=== PATIENT | female | born 1985 | race Caucasian/White ===

== ENCOUNTER 2020-11-03 10:27 | Outpatient (CLI) | payer OTHER ==
[2020-11-03 14:55] LABS: THYROID STIMULATING HORMONE < 0.08 uIU/mL (0.34-5.60)
[2020-11-03 14:57] LABS: FREE T3 6.85 pg/mL (2.5-3.9)
[2020-11-03 14:58] LABS: FREE T4 (FREE THYROXINE) 1.35 ng/dL (0.58-1.64)
== END 2020-11-03 23:59 | disposition home or self-care (01) ==
LOC: LAB.WCP 10:27
PROVIDERS: ATTEND Family Medicine
DX: E03.9 Hypothyroidism, unspecified (principal)
CPT/HCPCS: 36415; 84439; 84443; 84481

== ENCOUNTER 2021-07-05 10:26 | Outpatient (CLI) | payer OTHER ==
--- NOTE | 2021-07-05 13:59 | Ultrasound Report ---
PROCEDURE: Head or Neck Soft Tissue INDICATIONS: GOITER TECHNIQUE: Real time scanning was performed of the neck region of interest, with image documentation . COMPARISON: None. FINDINGS: Right: Thyroid lobe measures 4 x 1 x 1.1 cm, and is heterogeneous in echotexture. Left: Thyroid lobe measures 3.7 x 1 x 1.2 cm, and is heterogeneous in echotexture. Isthmus: 0.3 cm Nodule number: 1 Location: Left Size: 0.7 x 0.6 x 0.8 centimeters Composition: Solid Echogenicity: Hyperechoic Shape: Wider than tall. Margins: Smooth Echogenic foci: None. Total points: 3 ACR TI-RADS category: Mildly suspicious. Less than 1.5 cm. No follow-up at this time. Nodule number: 2 Location: Left inferior lateral Size: 0.6 x 0.4 x 0.4 centimeters Composition: Solid Echogenicity: Hyperechoic Shape: Wider than tall. Margins: Smooth Echogenic foci: None. Total points: 3 ACR TI-RADS category: Mildly suspicious. Less than 1.5 cm. No follow-up at this time. Nodule number: 3 Location: Left inferior lateral Size: 0.9 x 0.2 x 0.7 cm Composition: Solid Echogenicity: Hypoechoic Shape: Taller than wide Margins: Smooth Echogenic foci: Punctate Total points: 9 ACR TI-RADS category: Highly suspicious; follow-up is 0.5 cm or larger (every year for 5 years). IMPRESSION: 1.Highly suspicious thyroid nodule in the left inferior lateral region. ACR TI-RADS definitions and recommendations: TI-RADS 1 (benign): 0 points. FNA not needed. TI-RADS 2 (not suspicious): 2 points. FNA not needed. TI-RADS 3 (mildly suspicious): 3 points. --FNA if 2.5 cm or larger, follow-up if 1.5 cm or larger (at 1, 3, and 5 years). TI-RADS 4 (moderately suspicious): 4-6 points. --FNA if 1.5 cm or larger, follow up if 1 cm or larger (at 1, 2, 3, and 5 years). TI-RADS 5 (highly suspicious): 7 points or more. --FNA if 1 cm or larger, follow-up is 0.5 cm or larger (every year for 5 years). Reviewed by: Clayton Juárez MD on 07/05/2021 1:58 PM PST Approved by: Clayton Juárez MD on 07/05/2021 1:58 PM PST Station ID: [id number]
== END 2021-07-05 10:27 | disposition home or self-care (01) ==
LOC: DI 10:26
PROVIDERS: ATTEND Family Medicine
DX: E04.2 Nontoxic multinodular goiter (principal)

== ENCOUNTER 2023-11-20 10:11 | Outpatient (CLI) | payer OTHER ==
[2023-11-20 12:11] LABS: BASOPHILS # (AUTO) 0.1 10^3/uL (0.0-0.1); BASOPHILS % (AUTO) 1.1 %; EOSINOPHILS # (AUTO) 0.1 10^3/uL (0.0-0.7); EOSINOPHILS % (AUTO) 1.8 %; HCT - HEMATOCRIT 31.7 % (37.0-47.0); HGB - HEMOGLOBIN 9.7 g/dL (12.0-16.0); LYMPHOCYTES # (AUTO) 1.2 10^3/uL (1.5-3.5); LYMPHOCYTES % (AUTO) 27.4 %; MEAN CORPUSCULAR HEMOGLOBIN 25.7 pg (27.0-31.0); MEAN CORPUSCULAR HGB CONC 30.6 g/dL (32.0-36.0); MEAN CORPUSCULAR VOLUME 84.1 fL (81.0-99.0); MEAN PLATELET VOLUME 10.7 fL (7.9-10.8); MONOCYTES # (AUTO) 0.3 10^3/uL (0.0-1.0); NEUTROPHILS # (AUTO) 2.8 10^3/uL (1.5-6.6); NEUTROPHILS % (AUTO) 62.2 %; PLT - PLATELET COUNT 257 10^3/uL (130-450); RED BLOOD COUNT 3.77 10^6/uL (4.20-5.40); RED CELL DISTRIBUTION WIDTH 16.5 % (12.0-15.0); WHITE BLOOD COUNT 4.4 x10^3/uL (4.8-10.8)
[2023-11-20 12:43] LABS: THYROID STIMULATING HORMONE 24.42 uIU/mL (0.34-5.60)
[2023-11-20 12:50] LABS: FERRITIN 2.1 ng/mL (11.0-306.8)
== END 2023-11-20 10:12 | disposition home or self-care (01) ==
LOC: LAB.N 10:11
PROVIDERS: ATTEND Nurse Practitioner
DX: D64.9 Anemia, unspecified (principal); E06.3 Autoimmune thyroiditis
CPT/HCPCS: 36415; 82728; 84439; 84443; 84481; 85025